=== PATIENT | male | born 1990 | race Caucasian/White ===

== ENCOUNTER 2022-02-07 09:40 | Outpatient (REF) | payer OTHER, SELFPAY ==
[2022-02-07 11:19] LABS: MANUAL DIFF FLAG NO
[2022-02-07 11:35] LABS: Basophils Percent Auto 0.8 % (0-2); Eosinophils Absolute Auto 0.2 X10*3/uL (0.0-0.4); Eosinophils Percent Auto 3.7 % (0-4); Hematocrit 47.5 % (42.0-52.0); Hemoglobin 16.4 g/dl (14.0-18.0); Imm Gran Abs Auto 0.01 X10*3/uL (0.00-0.03); Imm Gran Pct Auto 0.2 % (0.0-0.4); Lymphocytes Absolute Auto 1.8 X10*3/uL (1.2-4.9); Lymphocytes Percent Auto 34.2 % (20-40); Mean Corpuscular HGB Conc 34.5 g/dl (31.0-36.0); Mean Corpuscular Hemoglobin 29.8 pg (27.0-33.0); Mean Corpuscular Volume 86.2 fL (80.0-98.0); Mean Platelet Volume 8.8 fL (9.4-12.4); Monocytes Absolute Auto 0.5 X10*3/uL (0.1-1.2); Monocytes Percent Auto 9.4 % (2-11); Neutrophils Absolute Auto 2.6 x10*3/uL (2.0-8.3); Neutrophils Percent Auto 51.7 % (45-73); Platelet Count 255 X10*3/uL (160-400); Red Blood Count 5.51 X10*6/uL (4.60-5.80); Red Cell Distribution Width 11.9 % (11.0-16.0); White Blood Count 5.1 X10*3/uL (4.8-10.8)
[2022-02-07 12:14] LABS: Alanine Aminotransferase 30 U/L (0-40); Albumin Level 4.4 g/dL (3.5-5.0); Alkaline Phosphatase 53 U/L (39-117); Anion Gap 13 (12-20); Aspartate Amino Transferase 26 U/L (5-37); Bilirubin Total 0.7 mg/dL (0.0-1.0); Blood Urea Nitrogen 22 mg/dL (9-16); Calcium 9.3 mg/dL (8.4-10.2); Carbon Dioxide 27 mmol/L (22-29); Chloride 104 mmol/L (96-108); Cholesterol 189 mg/dL; Estimated Glomerular Filt Rate 60; Glucose Fasting 95 mg/dL (60-99); HDL Cholesterol 45 mg/dL; LDL Cholesterol Calculated 111 mg/dl; Potassium 4.2 mmol/L (3.3-5.1); Sodium 140 mmol/L (135-145); Total Protein 7.3 g/dL (6.5-8.0); Triglycerides 167 mg/dL
== END 2022-02-07 09:41 | disposition home or self-care (01) ==
LOC: HO.HMGCLDS 09:40
PROVIDERS: PCP Internal Medicine; Visit Provider Internal Medicine
DX: Z00.00 Encounter for general adult medical examination without abnormal findings (principal)
CPT/HCPCS: 36415; 80053; 80061; 85025

== ENCOUNTER 2022-03-25 08:20 | Outpatient (REF) | payer OTHER, SELFPAY | END 2022-03-25 08:21 | disposition home or self-care (01) | LOC: HO.US 08:20 | PROVIDERS: Visit Provider Internal Medicine | DX: R59.0 Localized enlarged lymph nodes (principal) | CPT/HCPCS: 76536 ==

== ENCOUNTER 2022-07-28 15:45 | Outpatient (REF) | payer OTHER, SELFPAY ==
--- NOTE | ~2022-07-28 | US_ITS ---
EXAMINATION: US SOFT TISSUE HEAD/NECK CLINICAL INFORMATION: Localized enlarged lymph nodes. COMPARISON: Ultrasound soft tissue neck 03/25/2022. TECHNIQUE: Linear transducer grayscale and color Doppler examination of the right submandibular region and right parotid. FINDINGS: Multiple right submandibular reniform lymph nodes are seen, with dimensions of 0.6 x 0.5 x 0.4 cm, 1.1 x 0.6 x 0.4 cm, 1.0 x 0.6 x 0.8 cm, 1.2 x 0.6 x 0.6 cm and 0.7 x 0.3 x 0.3 cm. These show good corticomedullary differentiation and discrete vascular hilum. Adjacent to the right parotid, 2.5 x 0.9 x 1.77 and 2.7 x 0.6 x 1.7 cm reniform lymph nodes are seen. These also shows good corticomedullary differentiation and vascular johny. No mass or fluid collection is seen. No foreign body is noted. US/US soft tiss head and/or neck IMPRESSION: There are shotty, nonpathologically enlarged right axillary lymph nodes, and a few mildly enlarged lymph nodes are seen adjacent to the right parotid gland. These are nonspecific and should be managed on a clinical basis. If of continued clinical concern, consider short-term follow-up ultrasound imaging in 3-6 months to ensure stability/regression.
== END 2022-07-28 15:46 | disposition home or self-care (01) ==
LOC: HO.US 15:45
PROVIDERS: PCP Internal Medicine; Visit Provider Internal Medicine
DX: R59.0 Localized enlarged lymph nodes (principal)
CPT/HCPCS: 76536

== ENCOUNTER 2022-10-07 15:49 | Outpatient (REF) | payer OTHER, SELFPAY ==
--- NOTE | ~2022-10-07 | US_ITS ---
EXAMINATION: US SOFT TISSUE NECK CLINICAL INFORMATION: Cervical adenopathy. COMPARISON: Ultrasound soft tissue head and/or neck dated 07/28/2022 and 03/25/2022. TECHNIQUE: Ultrasound of the neck soft tissues is performed with high- frequency oliveira-scale imaging and color Doppler. FINDINGS: There are 3 normal-appearing lymph nodes seen adjacent to the submandibular gland. This measures 0.5 x 0.5 x 0.7 cm, 1.1 x 1 0.4 x 0.9 cm and 1 x 0.5 x 1.2 cm. Lymph nodes demonstrate normal ultrasound morphology and normal hilar flow. There are 2 lymph nodes adjacent to the right parotid gland. There is a small normal-appearing lymph node measuring 0.3 x 0.2 x 0.4 cm. This demonstrates normal ultrasound morphology and flow. There is a slightly enlarged lymph node adjacent to the right submandibular gland measures measuring 2.3 x 0.4 x 1.3 cm. This demonstrates normal ultrasound morphology and flow. Nodes appear decreased in size and number compared to previous exam July 2022 US/US soft tiss head and/or neck IMPRESSION: Interval decrease in size and number of right cervical lymph nodes. There is 1 lymph node adjacent to the right parotid gland that is slightly enlarged.
== END 2022-10-07 15:50 | disposition home or self-care (01) ==
LOC: HO.US 15:49
PROVIDERS: PCP Internal Medicine; Visit Provider Internal Medicine Medical Oncology
DX: R59.0 Localized enlarged lymph nodes (principal)
CPT/HCPCS: 76536

== ENCOUNTER → 2022-11-01 16:00 | Outpatient (BNV) | payer OTHER, SELFPAY | PROVIDERS: PCP Internal Medicine; Visit Provider Internal Medicine Medical Oncology | DX: R59.0 Localized enlarged lymph nodes (principal) | CPT/HCPCS: 99213 ==

== ENCOUNTER 2023-01-13 11:06 | Outpatient (AMB) | payer OTHER, SELFPAY ==
--- NOTE | 2023-01-13 11:12 | A.OFFPC_ITS ---
Vital Signs 01/13/23 11:17 Height 6 ft 2 in Weight 250 lb BMI 32.1 BP 118/70 Blood Pressure Location Lt brachial Position Sitting Pulse 84 Pulse Source Pulse Oximeter Pulse Oximetry (%) 97 Oxygen Delivery Method Room Air Intake Visit Reasons: lump on back Intake Note: Pt is here today for a sick visit. Pt c/o lump on his L side of his upper back. Pt states that when he touches the area its numb at times. Allergies No Known Allergies Allergy (Verified 01/13/23 11:20) Medication List - Last Reconciled 01/13/23 by Aliza Charles MD ketoconazole 400 mg (2 x 200 mg) PO DAILY ketoconazole 2% 1 appl topical DAILY Tobacco use date assessed: 01/13/23 Dental Screening Dental Screen Date: 01/13/23 Did you have a dental visit in the last 12 months?: Yes Did you have a dental problem in the last 6 months where you did not have access to dental care?: No Was dental information given to patient?: Patient has dentist HPI lump on back HPI Details Patient complains of a growth on his upper back for a few months and itchy rash on his back and groin area. PENDING SALE TO [facility] Medical History (Updated 01/13/23 @ 12:04 by Aliza Charles MD) Fractured nasal bones Surgical History Hx of left knee surgery Family History (Updated 01/13/23 @ 11:22 by Kaley Castro [facility]) Father No problems noted. Mother No problems noted. Maternal Uncle Lung cancer Maternal Grandmother No problems noted. 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 Current occupational exposures/hazards: No Gender identity: Male Cognitive needs: No Hearing needs: No Vision needs: No Review of Systems Const All systems reviewed & are unremarkable except as noted in HPI and below Reports no additional complaints Eyes Reports no additional complaints ENT Reports no additional complaints Card Reports no additional complaints Resp Reports no additional complaints GI Reports no additional complaints Reports no additional complaints Physical exam (Primary Care) Vital Signs: Last Vital Signs Pulse 84 01/13/23 11:17 BP 118/70 01/13/23 11:17 Pulse Ox 97 01/13/23 11:17 Oxygen Delivery Method Room Air 01/13/23 11:17 BMI result Body Mass Index 32.1 Tobacco/Smoking Status: Tobacco use Status Tobacco use date assessed 01/13/23 01/13/23 11:23 Patient Tobacco Use Status Never used Tobacco 01/13/23 11:23 e-Cigarette/Vaping Use Never Used 01/13/23 11:13 Const General: no acute distress HENMT Head: Yes normal to inspection Ears: hearing grossly normal bilaterally Face and sinus: Yes normal facial exam Neck Neck: Yes no lymphadenopathy and Yes supple Chest Other: 3 cm subcutaneous lipoma present on the left scapular region Resp Effort & Inspection: normal respiratory effort Auscultation: clear to auscultation bilaterally Cardio Rhythm: regular rhythm Heart sounds: S1 normal heart sound present and S2 normal heart sound present Skin Other: [place] papular patchy rash on upper back and inguinal area Assessment and Plan Assessment & Plan (1) Tinea corporis: Code(s): B35.4 - Tinea corporis Plan: Treat with ketoconazole and prevention discussed with the patient (2) Lipoma: Code(s): D17.9 - Benign lipomatous neoplasm, unspecified Plan: Patient reassured will monitor for any change in the size Medications: New ketoconazole 400 mg (2 x 200 mg) PO DAILY 14 tabs 0RF ketoconazole 2% 1 appl topical DAILY 60 grams 0RF Coding Level of Care Code Est Pt Level 3 (62406) Diagnoses Tinea corporis B35.4 Lipoma D17.9
[2023-01-13 11:17] VITALS: BP 118/70; PULSE 84; O2SAT 97; BMI 32.1
== END 2023-01-13 12:08 | disposition home or self-care (01) ==
PROVIDERS: PCP Internal Medicine; Visit Provider Internal Medicine
DX: B35.4 Tinea corporis (principal); D17.9 Benign lipomatous neoplasm, unspecified
CPT/HCPCS: 99213

== ENCOUNTER 2023-08-09 08:28 | Outpatient (AMB) | payer OTHER, SELFPAY ==
[2023-08-09 08:37] VITALS: BP 108/74; PULSE 89; O2SAT 96; BMI 31.7
--- NOTE | 2023-08-09 08:37 | A.OFFPC_ITS ---
Vital Signs 08/09/23 08:37 Height 6 ft 2 in Weight 247 lb BMI 31.7 BP 108/74 Blood Pressure Location Lt brachial Position Sitting Pulse 89 Pulse Source Pulse Oximeter Pulse Oximetry (%) 96 Oxygen Delivery Method Room Air Intake Visit Reasons: Annual PE Intake Note: Pt is here today for PE. Allergies No Known Allergies Allergy (Verified 08/09/23 08:48) Medication List - Last Reconciled 08/09/23 by Aliza Charles MD No Known Home Meds Tobacco use date assessed: 08/09/23 Dental Screening Dental Screen Date: 08/09/23 Did you have a dental visit in the last 12 months?: Yes Did you have a dental problem in the last 6 months where you did not have access to dental care?: No Was dental information given to patient?: Patient has dentist HPI Annual PE HPI Details Pt presents for PE. PFSH Medical History Fractured nasal bones Surgical History Hx of left knee surgery Family History Father No problems noted. Mother No problems noted. Maternal Uncle Lung cancer Maternal Grandmother No problems noted. 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 1. Little interest or pleasure in doing things: not at all 2. Feeling down, depressed, or hopeless: not at all 3. Trouble falling or staying asleep, or sleeping too much: not at all 4. Feeling tired or having little energy: not at all 5. Poor appetite or overeating: not at all 6. Feeling bad about yourself - or that you are a failure or have let yourself or your family down: not at all 7. Trouble concentrating on things, such as reading the newspaper or watching television: not at all 8. Moving or speaking so slowly that other people could have noticed. Or the opposite - being so fidgety or restless that you have been moving around a lot more than usual: not at all 9. Thoughts that you would be better off or of hurting yourself in some way: not at all Total score: 0 Depression Screening Interpretation: Negative Depression Screening Done: Yes Source: Developed by Drs. Osvaldo Bowen, Aline Pacheco, Kane Her and colleagues, with an educational kaylen from [employer]. Thrive Questionnaire Date Thrive assessed: 08/09/23 I am a: Patient What is your living situation today?: I have a steady place to live Within the past 12 months, did the food you bought not last and you didn't have the money to get more?: Never true Within the past 12 months, did you worry whether your food would run out before you got money to buy more?: Never true Do you have trouble paying for medicines?: No Do you have trouble getting transportation to medical appointments?: No Do you have trouble paying your heating and electricity bill?: No Do you have trouble taking care of your child, family member or friend?: No Do you have trouble with day-to-day activities such as bathing, preparing meals, shopping, managing finances, etc.?: No Are you currently unemployed and looking for a job?: No Are you interested in more education?: No Please select the resources that you would like help with: None Currently or been in a relationship where the following occur: no concerns reported THRIVE Score: 0 AUDIT C Alcohol Use Questionnaire (AUDIT-C) 1. How often do you have a drink containing alcohol?: Monthly or less 2. How many drinks containing alcohol do you have on a typical day when you are drinking?: 1 or 2 3. How often do you have six or more drinks on one occasion?: Never Total Score: 1 CIRO-7 AMB Questionnaire CIRO-7 Date CIRO - 7 assessed: 08/09/23 Feeling nervous, anxious, or on edge: 1 = Several days Not being able to stop or control worryin = Not at all Worrying too much about different things: 0 = Not at all Trouble relaxin = Not at all Being so restless that it is hard to sit still: 0 = Not at all Becoming easily annoyed or irritable: 0 = Not at all Feeling afraid as if something awful might happen: 0 = Not at all Total CIRO-7 score (0-4 normal; 5-9 mild; 10-14 moderate; 15-21 severe): 1 Source: Developed by Drs. Osvaldo Bowen, Aline Pacheco, Kane Her and colleagues, with an educational kaylen from [employer]. Review of Systems Const All systems reviewed & are unremarkable except as noted in HPI and below Reports no additional complaints Eyes Reports no additional complaints ENT Reports no additional complaints Card Reports no additional complaints Resp Reports no additional complaints GI Reports no additional complaints Reports no additional complaints Physical exam (Primary Care) Vital Signs: Last Vital Signs Pulse 89 08/09/23 08:37 BP 108/74 08/09/23 08:37 Pulse Ox 96 08/09/23 08:37 Oxygen Delivery Method Room Air 08/09/23 08:37 BMI result Body Mass Index 31.7 Tobacco/Smoking Status: Tobacco use Status Tobacco use date assessed 08/09/23 08/09/23 08:51 Patient Tobacco Use Status Never used Tobacco 08/09/23 08:51 e-Cigarette/Vaping Use Never Used 08/09/23 08:38 PHQ-9: PHQ-9 Score PHQ-9: Total score 0 08/09/23 08:57 Depression Screening Interpretation: Negative Thrive Assessment: Date of Thrive Assessment Date Thrive assessed 08/09/23 08/09/23 08:53 Currently or been in a relationship where the following occur: no concerns reported Const General: no acute distress HENMT Head: Yes normal to inspection Ears: hearing grossly normal bilaterally Face and sinus: Yes normal facial exam Mouth: Normal oral and palatal mucosa present Eyes General: appearance normal, both eyes and all related structures Neck Neck: Yes no lymphadenopathy and Yes supple Resp Effort & Inspection: normal respiratory effort Auscultation: clear to auscultation bilaterally Cardio Rhythm: regular rhythm Heart sounds: S1 normal heart sound present and S2 normal heart sound present GI Inspection: Yes normal to inspection Palpation (GI): Soft to palpation Percussion: Yes normal to percussion Auscultation: normal bowel sounds Assessment and Plan Assessment & Plan (1) Annual physical exam: Code(s): Z00.00 - Encounter for general adult medical examination without abnormal findings Plan: well balanced diet, regular exercise, patient will return for fasting labs Orders: Orders Comprehensive [place]. Panel Fast Today Z00.00 - Encounter for general adult medical examination without abnormal findings Complete Blood Count Auto Diff Today Z00.00 - Encounter for general adult medical examination without abnormal findings Lipid Panel Today Z00.00 - Encounter for general adult medical examination without abnormal findings UA w Microscopic Today Z00.00 - Encounter for general adult medical examination without abnormal findings Coding Level of Care Code Est Pt Prev Care 18-39y(26533) Diagnoses Annual physical exam Z00.00
== END 2023-08-09 09:29 | disposition home or self-care (01) ==
PROVIDERS: PCP Internal Medicine; Visit Provider Internal Medicine
DX: Z00.00 Encounter for general adult medical examination without abnormal findings (principal)
CPT/HCPCS: 99395

== ENCOUNTER 2023-10-31 07:45 | Outpatient (REF) | payer OTHER, SELFPAY ==
[2023-10-31 08:00] LABS: MANUAL DIFF FLAG NO
[2023-10-31 08:26] LABS: Basophils Absolute Auto 0.1 X10*3/uL (0.0-0.2); Basophils Percent Auto 1.2 % (0-2); Eosinophils Absolute Auto 0.2 X10*3/uL (0.0-0.4); Eosinophils Percent Auto 3.4 % (0-4); Hematocrit 44.8 % (42.0-52.0); Hemoglobin 16.1 g/dl (14.0-18.0); Imm Gran Abs Auto 0.02 X10*3/uL (0.00-0.03); Imm Gran Pct Auto 0.4 % (0.0-0.4); Lymphocytes Percent Auto 39.8 % (20-40); Mean Corpuscular HGB Conc 35.9 g/dl (31.0-36.0); Mean Corpuscular Hemoglobin 30.8 pg (27.0-33.0); Mean Corpuscular Volume 85.7 fL (80.0-98.0); Mean Platelet Volume 8.6 fL (9.4-12.4); Monocytes Absolute Auto 0.5 X10*3/uL (0.1-1.2); Monocytes Percent Auto 10.4 % (2-11); Neutrophils Absolute Auto 2.2 x10*3/uL (2.0-8.3); Neutrophils Percent Auto 44.8 % (45-73); Platelet Count 245 X10*3/uL (160-400); Red Blood Count 5.23 X10*6/uL (4.60-5.80); Red Cell Distribution Width 11.9 % (11.0-16.0)
[2023-10-31 08:54] LABS: Alanine Aminotransferase 23 U/L (0-40); Albumin Level 4.3 g/dL (3.5-5.0); Alkaline Phosphatase 52 U/L (39-117); Anion Gap 13 (12-20); Aspartate Amino Transferase 21 U/L (5-37); Bilirubin Total 0.4 mg/dL (0.0-1.0); Blood Urea Nitrogen 18 mg/dL (9-16); Calcium 9.2 mg/dL (8.4-10.2); Carbon Dioxide 26 mmol/L (22-29); Chloride 105 mmol/L (96-108); Estimated Glomerular Filt Rate > 60; Glucose Random 102 mg/dL (60-115); Potassium 4.1 mmol/L (3.3-5.1); Sodium 140 mmol/L (135-145)
[2023-10-31 09:05] LABS: Ferritin 118 ng/mL (20-250)
== END 2023-10-31 07:46 | disposition home or self-care (01) ==
LOC: HO.LAB 07:45
PROVIDERS: Internal Medicine Medical Oncology; PCP Internal Medicine; Visit Provider Internal Medicine
DX: R59.0 Localized enlarged lymph nodes (principal)
CPT/HCPCS: 36415; 80053; 82728; 85025

== ENCOUNTER 2023-11-03 15:37 | Outpatient (REF) | payer OTHER, SELFPAY ==
--- NOTE | ~2023-11-03 | US_ITS ---
EXAMINATION: US SOFT TISSUE NECK CLINICAL INFORMATION: Cervical lymphadenopathy, compare to ultrasound of October 07, 2022. COMPARISON: Ultrasound soft tissue neck 10/07/2022, 07/28/2022, and 03/25/2022. TECHNIQUE: Ultrasound of the neck soft tissues is performed with high- frequency oliveira-scale imaging and color Doppler. Targeted ultrasound images were obtained by the location analyst of the area of concern as indicated by the patient in the right level 2 submandibular neck and right parotid region. Radiologist was not in attendance. Images were later provided for interpretation. FINDINGS: There is a 3.7 x 4.2 x 1.4 cm wider than tall solid mass with internal septations, trace vascularity and well-defined margins which was not previously imaged in the superficial soft tissues in the palpable area of concern indicated by the patient to the location analyst in the right neck. Differential considerations include a fatty mass such as a lipoma, although abnormal lymph node or mass should also be considered. Right neck level 2 lymph nodes measure 2.1 x 0.8 x 1.2 cm, 1.1 x 0.6 x 1.4 cm and, 0.9 x 0.6 x 2.0 cm and demonstrate echogenic johny with characteristic lymph node morphology. The largest have increased in size since the prior study. 0.8 x 0.5 x 0.5 cm and 1.0 x 0.5 x 0.8 cm lymph nodes adjacent to the right parotid gland demonstrate echogenic johny with characteristic lymph node morphology and have not increased in size. Largest node has decreased in size since prior exam. US/US soft tiss head and/or neck IMPRESSION: Right neck level 2 nodes, largest slightly increased in size and demonstrating characteristic lymph node morphology.
== END 2023-11-03 15:38 | disposition home or self-care (01) ==
LOC: HO.HMGCX 15:37
PROVIDERS: PCP Internal Medicine; Visit Provider Internal Medicine Medical Oncology
DX: R59.0 Localized enlarged lymph nodes (principal)
CPT/HCPCS: 76536

== ENCOUNTER 2024-12-05 08:28 | Outpatient (REF) | payer BC, SELFPAY ==
[2024-12-05 11:08] LABS: Cholesterol 235 mg/dL (<200); HDL Cholesterol 49 mg/dL (>40); LDL Cholesterol Calculated 158 mg/dL (<100); Triglycerides 140 mg/dL (<150)
== END 2024-12-05 08:29 | disposition home or self-care (01) ==
LOC: HO.HMGCLDS 08:28
PROVIDERS: PCP Internal Medicine; Visit Provider Internal Medicine
DX: Z00.00 Encounter for general adult medical examination without abnormal findings (principal); R59.0 Localized enlarged lymph nodes; Z13.6 Encounter for screening for cardiovascular disorders; Z13.30 Encounter for screening examination for mental health and behavioral disorders, unspecified
CPT/HCPCS: 36415; 80061; 96127

== ENCOUNTER 2024-12-05 08:28 | Outpatient (AMB) | payer BC, SELFPAY ==
--- NOTE | 2024-12-05 08:33 | MHC.PC.OV ---
Vital Signs 12/05/24 08:34 Height 6 ft 2 in Weight 245 lb BMI 31.5 BP 108/74 Blood Pressure Location Lt brachial Position Sitting Respiration 18 Pulse 87 Pulse Source Pulse Oximeter Temp 98.2 F Temp Source Oral Pulse Oximetry (%) 97 Oxygen Delivery Method Room Air Intake Visit Reasons: CPE Intake Note: Pt is here today for PE. Allergies No Known Allergies Allergy (Verified 12/05/24 08:35) Medication List - Last Reconciled 12/05/24 by Aliza Charles MD No Known Home Meds Tobacco use date assessed: 12/05/24 Dental Screening Dental Screen Date: 12/05/24 Did you have a dental visit in the last 12 months?: Yes Did you have a dental problem in the last 6 months where you did not have access to dental care?: No Was dental information given to patient?: Patient has dentist HPI CPE HPI Details Patient presents for physical. He has a 6 week old son. [facility] Medical History (Updated 12/05/24 @ 10:05 by Aliza Charles MD) Annual physical exam Surgical History (Updated 12/05/24 @ 08:38 by BURTON Andrade) [place] teeth extracted Hx of left knee surgery Family History Father No problems noted. Mother No problems noted. Maternal Uncle Lung cancer Maternal Grandmother No problems noted. 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 1. Little interest or pleasure in doing things: not at all 2. Feeling down, depressed, or hopeless: not at all 3. Trouble falling or staying asleep, or sleeping too much: not at all 4. Feeling tired or having little energy: not at all 5. Poor appetite or overeating: not at all 6. Feeling bad about yourself - or that you are a failure or have let yourself or your family down: not at all 7. Trouble concentrating on things, such as reading the newspaper or watching television: not at all 8. Moving or speaking so slowly that other people could have noticed. Or the opposite - being so fidgety or restless that you have been moving around a lot more than usual: not at all 9. Thoughts that you would be better off or of hurting yourself in some way: not at all Total score: 0 Depression Screening Interpretation: Negative Depression Screening Done: Yes 14695 - PHQ-9 Billing: Yes Source: Developed by Drs. Osvaldo Bowen, Aline Pacheco, Kane Her and colleagues, with an educational kaylen from [employer]. Thrive Questionnaire Date Thrive assessed: 12/05/24 I am a: Patient What is your living situation today?: I have a steady place to live Within the past 12 months, did the food you bought not last and you didn't have the money to get more?: Never true Within the past 12 months, did you worry whether your food would run out before you got money to buy more?: Never true Do you have trouble paying for medicines?: No Do you have trouble getting transportation to medical appointments?: No Do you have trouble paying your heating and electricity bill?: No Do you have trouble taking care of your child, family member or friend?: No Do you have trouble with day-to-day activities such as bathing, preparing meals, shopping, managing finances, etc.?: No Are you currently unemployed and looking for a job?: No Are you interested in more education?: No Please select the resources that you would like help with: None Currently or been in a relationship where the following occur: No concerns reported THRIVE Score: 0 AUDIT C Alcohol Use Questionnaire (AUDIT-C) 1. How often do you have a drink containing alcohol?: Monthly or less 2. How many drinks containing alcohol do you have on a typical day when you are drinking?: 3 or 4 3. How often do you have six or more drinks on one occasion?: Less than monthly Total Score: 3 CIRO-7 AMB Questionnaire CIRO-7 Date CIRO - 7 assessed: 12/05/24 Feeling nervous, anxious, or on edge: 0 = Not at all Not being able to stop or control worryin = Not at all Worrying too much about different things: 0 = Not at all Trouble relaxin = Not at all Being so restless that it is hard to sit still: 0 = Not at all Becoming easily annoyed or irritable: 0 = Not at all Feeling afraid as if something awful might happen: 0 = Not at all Total CIRO-7 score (0-4 normal; 5-9 mild; 10-14 moderate; 15-21 severe): 0 Source: Developed by Drs. Osvaldo Bowen, Aline Pacheco, Kane Her and colleagues, with an educational kaylen from [employer]. CIRO-7 Assessment Billing CIRO-7 Assessment Tool: CIRO-7 Assessment 43944 Review of Systems Const All systems reviewed & are unremarkable except as noted in HPI and below Eyes Reports no additional complaints ENT Reports no additional complaints Card Reports no additional complaints Resp Reports no additional complaints GI Reports no additional complaints Reports no additional complaints Physical exam (Primary Care) Vital Signs: Last Vital Signs Temp 98.2 F 12/05/24 08:34 Pulse 87 12/05/24 08:34 Resp 18 12/05/24 08:34 BP 108/74 12/05/24 08:34 Pulse Ox 97 12/05/24 08:34 Oxygen Delivery Method Room Air 12/05/24 08:34 BMI result Body Mass Index 31.5 Tobacco/Smoking Status: Tobacco use Status Tobacco use date assessed 12/05/24 12/05/24 08:39 Patient Tobacco Use Status Never used Tobacco 12/05/24 08:39 e-Cigarette/Vaping Use Never Used 12/05/24 08:39 PHQ-9: PHQ-9 Score PHQ-9: Total score 0 12/05/24 08:49 Depression Screening Interpretation: Negative Thrive Assessment: Date of Thrive Assessment Date Thrive assessed 12/05/24 12/05/24 08:49 Currently or been in a relationship where the following occur: No concerns reported Const General: no acute distress HENMT Head: Yes normal to inspection Face and sinus: Yes normal facial exam Eyes General: appearance normal, both eyes and all related structures Neck Neck: Yes supple Resp Effort & Inspection: normal respiratory effort Auscultation: clear to auscultation bilaterally Cardio Rhythm: regular rhythm Heart sounds: S1 normal heart sound present and S2 normal heart sound present GI Inspection: Yes normal to inspection Palpation (GI): Soft to palpation Percussion: Yes normal to percussion Auscultation: normal bowel sounds Coding Level of Care Code Est Pt Prev Care 18-39y(03431) Diagnoses Annual physical exam Z00. Cervical adenopathy R59.0 Additional Codes CIRO-7 Assessment Billing - CIRO-7 Assessment Tool: CIRO-7 Assessment 53812 ([id number]) PHQ-9 - 46223 - PHQ-9 Billing: Yes ([id number]) Assessment & Plan Assessment & Plan (1) Annual physical exam: Code(s): Z00.00 - Encounter for general adult medical examination without abnormal findings Category: Medical Plan: Well-balanced diet regular physical activity discussed with the patient he will return for fasting lipid profile (2) Cervical adenopathy: Comment: Established with Hematology, repeat neck ultrasound 10/2023 right neck mass 3.7 x 4.2 x 1 point 4 cm consistent with lipoma, level 2 right-sided lymph nodes, the largest one slightly increased in size, Code(s): R59.0 - Localized enlarged lymph nodes Category: Medical Plan: Follow-up with Hematology Orders: Orders Lipid Panel Today Z00.00 - Encounter for general adult medical examination without abnormal findings
[2024-12-05 08:34] VITALS: BP 108/74; PULSE 87; RESP 18; TEMP 36.8; O2SAT 97; BMI 31.5
--- OUTSIDE RECORDS SUMMARY | 2024-12-05 08:48 | XMS_ITS | Clinical Summary ---
Author Organization [facility] Address [address] [place] [address] Care Team Providers Care Trailer Body Assembler Name Role Phone Unavailable Primary Care Provider Unavailabl e Immunizations Immunization Administration Dates Next Due Covid-19 mRNA Primary Series Vaccine - Moderna 0.5 mL Full Dose 10/02/2020,09/04/2020 Covid-19 mRNA Vaccine - Moderna 0.25 mL Booster 06/24/2021 Social History Tobacco Use Types Packs/Day Years Used Date Smoking Tobacco: Never Assessed Sex and Gender Information Value Date Recorded Sex Assigned at Not on file Legal Sex Male 8:41 PM EDT Gender Identity Not on file Sexual Orientation Not on file Plan of Treatment Health Maintenance Due Date Last Done Comments Hepatitis C Virus Screening 1991 HIV Screening 02/08/2004 DTaP/Tdap/Td Vaccines (1 - Tdap) 2010 Hepatitis B Vaccines (1 of 3 - 19+ 3-dose series) 2010 COVID-19 Vaccine ( - 2023-2 5 season) 2024 06/24/2021, 10/02/2020, 09/04/2020 Influenza Vaccine 01/17/2025 HPV Vaccines Aged Out No longer eligi ble based on patient's age to complete this topic Pneumococcal Vaccine: Pediatric (0-5 Years) and At-Risk Patients (6 to 49 Years) Aged Out No longer eligible b ased on patient's age to complete this topic Insurance [facility] [employer] HMO
== END 2024-12-05 09:01 | disposition home or self-care (01) ==
LOC: HO.HMCC 08:32
PROVIDERS: PCP Internal Medicine; Visit Provider Internal Medicine
DX: Z00.00 Encounter for general adult medical examination without abnormal findings (principal); R59.0 Localized enlarged lymph nodes